=== PATIENT | male | born 1980 | race Two or more races ===

== ENCOUNTER 2016-10-27 14:39 | Emergency (ER) | payer OTHER ==
--- NOTE | ~2016-10-27 | CT114 ---
[facility] A Service of [facility] / [facility] RADIOLOGY TEXT RESULTS PATIENT: KIKO SALGADO LOCATION: [facility] : 84 UNIT #: [id number] AGE: [address]: Rodney Lugo DO SEX: M ORDER DR: [id number] [facility] [address] [place], [place] [address] [id number] MR#: [id number] Acc #: [id number] NAME: KIKO SALGADO. : 1980 SEX: M STUDY DATE/TIME: 10/27/2016 16:12 UNIT: [facility] ROOM: STUDY DESCRIPTION: CT Soft Tissue Neck W Cont Attending Physician: Rodney Lugo D.O. Ordering Physician: Rodney Lugo D.O. MEDICAL IMAGING REPORT This report is preliminary unless electronic signature is present EXAM CT neck with contrast HISTORY Sore throat, toothache x1 month. TECHNIQUE Axial images performed from the skull base to the jocelyn following IV contrast. Multiplanar reconstructed images reviewed at a workstation. This CT exam was performed with one or more of the following radiation dose reduction techniques: automatic exposure control, adjustment of mA and/or kV according to patient size, and iterative reconstruction. FINDINGS The visualized skull base unremarkable. Parotid, submandibular and thyroid glands appear normal. Mild anterior and posterior cervical lymphadenopathy. Anatomic spaces within the head and neck appear normal. Visualized sinuses unremarkable, except for minimal right maxillary sinus mucosal thickening. A few small submandibular nodes. Upper thorax unremarkable. Moderate multilevel degenerative disc changes cervical spine, most pronounced C5-C6, C6-C7. There is left C5-C6 disc protrusion and paracentral and central osteophyte contributing to mild spinal stenosis. At C6-C7, there is broad-based posterior disc protrusion and osteophyte contributing to mild spinal stenosis. Dentition in gross repair. IMPRESSION 1. Mild bilateral cervical lymphadenopathy. 2. Extensive dental restorations and the dentition has seen gross satisfactory repair. Correlate with targeted dental exam. [facility] A Service of [facility] / [facility] RADIOLOGY TEXT RESULTS PATIENT: KIKO SALGADO LOCATION: [facility] : [birth year] UNIT #: [id number] AGE: [address]: Rodney Lugo DO SEX: M ORDER DR: Dictated by... Venus Shultz M.D. THIS IS AN ELECTRONICALLY VERIFIED REPORT Venus Shultz M.D. at 10/27/2016 8:37 PM JUAN/ruthie TD: 10/27/2016 19:20 JOB #: [id number] MEDICAL IMAGING REPORT Page 1 of 1 COPY
[2016-10-27 14:54] LABS: BASOPHIL% 0.8 % (0-2.5); EOSINOPHIL# 0.3 X10e3 (0-0.7); EOSINOPHIL% 5.1 % (0.0-7.0); HEMATOCRIT 43.3 % (38.0-50.0); HEMOGLOBIN 14.3 gm/dL (13.0-16.0); LYMPHOCYTE# 2.4 X10e3 (1.0-3.5); LYMPHOCYTE% 40.9 % (17.0-45.0); MEAN CELL VOLUME 78.2 FL (83-96); MEAN CORPUSCULAR HEMOGLOBIN 25.8 PG (28-34); MEAN PLATELET VOLUME 7.7 FL (6.5-11.5); MONOCYTE# 0.3 X10e3 (0-1.0); MONOCYTE% 5.1 % (3.0-12.0); NEUTROPHIL# 2.8 X10e3 (1.5-7.1); NEUTROPHIL% 48.1 % (40-75); PLATELET COUNT 393 X10e3 (140-420); RED BLOOD COUNT 5.53 X10e (3.90-5.60); RED CELL DISTRIBUTION WIDTH 13.7 % (11.0-15.5); WHITE BLOOD COUNT 5.8 X10e3 (4.0-10.5)
[2016-10-27 15:04] LABS: DIFF IND NO
[2016-10-27 15:12] LABS: PARTIAL THROMBOPLASTIN TIME 25.4 SECONDS (23.5-31.3); PROTHROMBIN TIME (PATIENT) 10.4 SECONDS (9.6-11.5)
[2016-10-27 15:31] LABS: BUN/CREATININE RATIO 13.75; CALCIUM SERUM 9.9 mg/dL (8.4-10.2); CREATININE SERUM 0.8 mg/dL (0.6-1.4); GLOM FILT RATE Estimated 116.6 mL/min (>60); POTASSIUM 3.8 mmol/L (3.5-5.1)
[2016-10-27 17:41] LABS: POC - CKMB 1.2 ng/mL (0.0-7.9); POC - TROPONIN <0.05 ng/mL (<=0.05)
== END 2016-10-27 18:20 | disposition home or self-care (01) ==
LOC: CED 14:39
PROVIDERS: Emergency Medicine
DX: K08.89 Other specified disorders of teeth and supporting structures (principal); J02.9 Acute pharyngitis, unspecified
CPT/HCPCS: 36415; 70491; 80048; 82553; 84484; 85025; 85610; 85730; 86308; 87651; 96374; 99284; J1885; Q9967